=== PATIENT | male | born 1955 | race Caucasian/White ===

== ENCOUNTER 2020-03-12 09:03 | Outpatient (CLI) | payer OTHER ==
[2020-03-12 09:41] LABS: MICROSCOPIC NOT IND
[2020-03-12 09:54] LABS: ALBUMIN 3.8 g/dL (3.4-5.0); CALCIUM 9.4 mg/dL (8.5-10.1)
[2020-03-12 10:12] LABS: ANION GAP 9 mmol/L (5-15); CHLORIDE 100 mmol/L (98-107)
[2020-03-12 10:29] LABS: ALANINE AMINOTRANSFERASE 21 U/L (12-78); ALKALINE PHOSPHATASE 65 U/L (45-117); BILIRUBIN,TOTAL 0.5 mg/dL (0.2-1.0); TOTAL PROTEIN 7.7 g/dL (6.4-8.2)
[2020-03-12] MEDS ORDERED: REGADENOSON 0.4 MG/5 ML SYRINGE ONE (11:00)
== END 2020-03-12 23:59 | disposition home or self-care (01) ==
LOC: CVU 09:03
PROVIDERS: ATTEND Orthopaedic Surgery
DX: I34.0 Nonrheumatic mitral (valve) insufficiency (principal); E11.9 Type 2 diabetes mellitus without complications; I50.9 Heart failure, unspecified
CPT/HCPCS: 36415; 80053; 81003; C8929; Q9957; J2785